=== PATIENT | male | born 1985 | race Caucasian/White ===

== ENCOUNTER 2022-06-01 15:19 | Outpatient (REF) | payer BC, SELFPAY ==
[2022-06-01 16:06] LABS: Anion Gap 16 (12-20); Blood Urea Nitrogen 14 mg/dL (9-16); Calcium 10.2 mg/dL (8.4-10.2); Carbon Dioxide 26 mmol/L (22-29); Chloride 105 mmol/L (96-108); Estimated Glomerular Filt Rate > 60; Potassium 4.8 mmol/L (3.3-5.1); Sodium 142 mmol/L (135-145)
[2022-06-01 16:29] LABS: Thyroid Stimulating Hormone 2.11 uIU/mL (0.32-4.0)
[2022-06-06 11:27] LABS: Catecholamine Frac, Total 937 pg/mL
[2022-06-06 11:57] LABS: Renin 9.91 ng/mL/h (0.25-5.82)
== END 2022-06-01 15:20 | disposition home or self-care (01) ==
LOC: HO.LAB 15:19
PROVIDERS: Visit Provider Internal Medicine Hypertension Specialist
DX: I10 Essential (primary) hypertension (principal); E87.1 Hypo-osmolality and hyponatremia
CPT/HCPCS: 36415; 80051; 82088; 82310; 82384; 82565; 84244; 84443; 84520